=== PATIENT | female | born 1960 | race Caucasian/White ===

== ENCOUNTER 2016-10-27 12:22 | Emergency (ER) | payer BC ==
--- NOTE | 2016-10-27 13:18 | Emergency Department Record ---
History of Present Illness - General Chief Complaint: General Stated Complaint: UNEXPLAINED WEIGHT LOSS AND POPING IN BACK OF HEAD Time Seen by Provider: 10/27/16 13:06 Source: Patient, RN notes reviewed Mode of Arrival: Ambulatory - History of Present Illness Initial comments: headache 6 days ago and she felt something pop in the right posterior head. She went to [facility] and sent to the ED. Primary Dr. Ly in [place]. Weight loss of 20 pounds since april 2016. Occassional blue dot and vision off slightly. polyuria and polydipsia. Dry cough in the am. Patient stopped smoking in 1999. Onset/Timin -: Days(s) - Related Data Allergies Allergy/AdvReac Type Severity Reaction Status Date / Time codeine Allergy Severe VOMITING Unverified 07/28/15 10:34 orphenadrine citrate Allergy MUSCLE PAIN Verified 09/30/15 09:39 [From Norflex] opiates Allergy Severe HIVES Uncoded 07/28/15 10:34 Travel Screening - Travel/Exposure Within Last 30 Days Have you traveled within the last 30 days?: No - Travel/Exposure Within Last Year Have you traveled outside the [place] in the last year?: No - Additonal Travel Details Have you been exposed to anyone with a communicable illness?: No - Travel Symptoms Symptom Screening: None Review of Systems Reviewed: No additional complaints except as noted below Constitutional: Reports: As per HPI, Weight change. Denies: Chills, Fever, Malaise, Night sweats, Weakness Eyes: Reports: As per HPI. Denies: Eye discharge, Eye pain, Photophobia, Vision change ENT: Reports: As per HPI. Denies: Congestion, Dental pain, Ear pain, Epistaxis , Hearing loss, Throat pain Respiratory: Reports: As per HPI, Cough. Denies: Dyspnea, Hemoptysis, Stridor, Wheezes Cardiovascular: Reports: As per HPI. Denies: Arrhythmia, Chest pain, Dyspnea on exertion, Edema, Murmurs, Orthopnea, Palpitations, Paroxysmal nocturnal dyspnea, Rheumatic Fever, Syncope Endocrine: Reports: As per HPI. Denies: Fatigue, Heat or cold intolerance, Polydipsia, Polyuria Gastrointestinal: Reports: As per HPI. Denies: Abdominal pain, Constipation, Diarrhea, Hematemesis, Hematochezia, Melena, Nausea, Vomiting Genitourinary: Reports: As per HPI. Denies: Abnormal menses, Discharge, Dyspareunia, Dysuria, Frequency, Hematuria, Incontinence, Retention, Urgency Musculoskeletal: Reports: As per HPI. Denies: Arthralgia, Back pain, Gout, Joint swelling, Myalgia, Neck pain Skin: Reports: As per HPI. Denies: Bruising, Change in color, Change in hair/ nails, Lesions, Pruritus, Rash Neurological: Reports: As per HPI, Headache. Denies: Abnormal gait, Confusion, Numbness, Paresthesias, Seizure, Tingling, Tremors, Vertigo, Weakness Psychiatric: Reports: As per HPI. Denies: Anxiety, Auditory hallucinations, Depression, Homicidal thoughts, Suicidal thoughts, Visual hallucinations Hematological/Lymphatic: Reports: As per HPI. Denies: Anemia, Blood Clots, Easy bleeding, Easy bruising, Swollen glands Past Medical History - SOCIAL HISTORY Smoking Status: Former smoker Alcohol Use: None Drug Use: None - RESPIRATORY Hx Respiratory Disorders: No - CARDIOVASCULAR Hx Cardio Disorders: Yes Hx Hypertension: Yes - NEURO Hx Neuro Disorders: No Comment:: restless legs - GI Hx GI Disorders: No - Hx Genitourinary Disorders: No - ENDOCRINE Hx Endocrine Disorders: No Hx Diabetes: No - MUSCULOSKELETAL Hx Musculoskeletal Disorders: Yes Hx Arthritis: Yes - PSYCH Hx Psych Problems: No - HEMATOLOGY/ONCOLOGY Hx Hematology/Oncology Disorders: No Family Medical History Any Significant Family History?: Yes Hx Cancer: Father Hx Diabetes: Father Hx Stroke: Father Course Vital Signs 10/27/16 10/27/16 12:29 12:54 Temperature 98.1 F 98.1 F Respiratory 20 20 Rate Blood Pressure 128/99 [Left Arm] Pulse Ox 100 Medical Decision Making - Data Complexity MDM Data: Labs Ordered and/or Reviewed, X-Ray Ordered and/or Reviewed (CTof head negative and chest xray neg) - Lab Data Result diagrams: 10/27/16 13:32 10/27/16 13:32 Disposition Clinical Impression: Weight loss Headache, tension-type Qualifiers: Headache chronicity pattern: unspecified pattern Intractability: not intractable Qualified Code(s): G44.209 - Tension-type headache, unspecified, not intractable Disposition: Home, Self-Care Condition: (1) Good Instructions: Tension Headache (ED) Additional Instructions: acetaminophen or motrin for pain follow up with family DR in one week Forms: Patient Portal Access Time of Disposition: 14:59 Quality - Quality Measures Quality Measures: N/A - Blood Pressure Screening Does Patient Have Any of the Following: No Blood Pressure Classification: Hypertensive Reading Systolic Measurement: 128 Diastolic Measurement: 99 Screening for High Blood Pressure: < Pre-Hypertensive BP, F/U Documented > [ G8950] Pre-Hypertensive Follow-up Interventions: Referral to alternative/primary care provider.
[2016-10-27 13:48] LABS: BASO % 0.5 % (0-6); EOS % 2.2 % (0-6); GRAN % 45.6 % (47-80); HEMATOCRIT 40.3 % (35.0-47.0); HEMOGLOBIN 13.5 gm/dl (11.6-16.0); LYMPH % 43.5 % (16-45); MEAN CELL VOLUME 90.2 fl (81-97); MEAN CORPUSCULAR HEMOGLOBIN 30.2 pg (27-33); MEAN CORPUSCULAR HGB CONC 33.5 g/dl (32-36); MEAN PLATELET VOLUME 10.6 fl (7.4-10.4); MONO % 8.2 % (0-9); PLATELET COUNT 262 K/uL (130-400); RED BLOOD COUNT 4.47 M/uL (3.80-5.40); RED CELL DISTRIBUTION WIDTH 13.8 % (11.5-14.5); WHITE BLOOD COUNT W/O DIFF 7.7 K/uL (4.2-12.2)
[2016-10-27 13:58] LABS: INR 0.99; PROTHROMBIN TIME (PATIENT) 10.7 SECONDS (9.5-12.1)
[2016-10-27 14:17] LABS: ALBUMIN 4.8 g/dL (4.0-5.0); ALKALINE PHOSPHATASE 72 U/L (35-104); ALT/SGPT 23 U/L (<33); AST/SGOT 28 U/L (10.0-35.0); BLOOD UREA NITROGEN 27.3 mg/dL (12.6-42.6); CREATININE 0.6 mg/dL (0.5-0.9); EST GLOMERULAR FILTRATION RATE > 60 mL/min; GLUCOSE,RANDOM 98 mg/dL (74-109)
[2016-10-27 14:21] LABS: ACETAMINOPHEN < 5.0 ug/mL (10.0-30.0); BILIRUBIN,DIRECT < 0.2 mg/dL (0-0.3); SALICYLATE < 0.3 mg/dL (2.8-20)
[2016-10-27 14:29] LABS: URINE APPEARANCE CLEAR; URINE BILIRUBIN NEGATIVE (NEGATIVE); URINE BLOOD NEGATIVE (NEGATIVE); URINE COLOR YELLOW; URINE GLUCOSE (UA) NEGATIVE (NEGATIVE); URINE KETONE NEGATIVE (NEGATIVE); URINE LEUKOCYTE ESTERASE NEGATIVE (NEGATIVE); URINE NITRITE NEGATIVE (NEGATIVE); URINE PROTEIN NEGATIVE (NEGATIVE); URINE UROBILINOGEN 0.2 E.U./dL (0.20 - 1.00)
--- NOTE | 2016-10-28 07:58 | CT SCAN REPORT ---
EXAM: CT OF THE BRAIN WITHOUT CONTRAST HISTORY: POSSIBLE CEREBROVASCULAR ACCIDENT. TECHNIQUE: Sequential axial images were obtained from the foramen magnum to the vertex without contrast administration. FINDINGS: The brain volume is normal. No large territorial infarct, hemorrhage , mass effect, or midline shift. No extraaxial fluid collection. The orbits, paranasal sinuses, and mastoid air cells are normal. IMPRESSION: NO ACUTE INTRACRANIAL ABNORMALITY IS APPRECIATED. JOB NUMBER: [id number] MTDD
--- NOTE | 2016-10-28 08:00 | RADIOLOGY REPORT ---
EXAM: CHEST, TWO VIEWS HISTORY: DIFFICULTY IN BREATHING. TECHNIQUE: Frontal and lateral views of the chest were performed. FINDINGS: The heart size is normal. The lung mauro are clear. The osseous structures are normal. IMPRESSION: NEGATIVE CHEST EXAMINATION. JOB NUMBER: [id number] MTDD
== END 2016-10-27 15:13 | disposition home or self-care (01) ==
LOC: ER 12:22
DX: R63.4 Abnormal weight loss (principal); G44.209 Tension-type headache, unspecified, not intractable; R63.1 Polydipsia; R06.00 Dyspnea, unspecified; I10 Essential (primary) hypertension; Z87.891 Personal history of nicotine dependence; Z79.899 Other long term (current) drug therapy
CPT/HCPCS: 99283; 99284; 83735; 85025; 85610; 80076; 80048; 81003; 87880; 84443; 71020; 70450; G0480 ×2; 80329

== ENCOUNTER 2017-10-28 10:05 | Emergency (ER) | payer BC ==
[2017-10-28] MEDS ORDERED: ASPIRIN 81 MG CHEWABLE TABLET PO ONE (10:25)
[2017-10-28] MEDS ORDERED: ALBUTEROL SULFATE (0.083%) 2.5 MG/3 ML NEB INH ONE (10:28)
[2017-10-28 10:36] LABS: BASO % 0.6 % (0-6); EOS % 2.7 % (0-6); GRAN % 40.4 % (47-80); HEMATOCRIT 38.6 % (35.0-47.0); HEMOGLOBIN 12.8 gm/dl (11.6-16.0); LYMPH % 46.8 % (16-45); MEAN CELL VOLUME 89.1 fl (81-97); MEAN CORPUSCULAR HEMOGLOBIN 29.6 pg (27-33); MEAN CORPUSCULAR HGB CONC 33.2 g/dl (32-36); MEAN PLATELET VOLUME 10.6 fl (7.4-10.4); MONO % 9.5 % (0-9); PLATELET COUNT 260 K/uL (130-400); RED BLOOD COUNT 4.33 M/uL (3.80-5.40); RED CELL DISTRIBUTION WIDTH 13.4 % (11.5-14.5); WHITE BLOOD COUNT W/O DIFF 7.9 K/uL (4.2-12.2)
--- NOTE | 2017-10-28 10:43 | Emergency Department Record ---
History of Present Illness - General Chief Complaint: Chest Pain Stated Complaint: CP/SOB Time Seen by Provider: 10/28/17 10:25 Source: Patient Mode of Arrival: Wheelchair Limitations: No limitations - History of Present Illness Initial Comments: pt developed sob and coughing and chest tightness while working this am. pt had a similar episode a few weeks ago and was admitted to [facility]. she had a neg workup including a neg stress test and was seen by dr cam. Complaint: Chest pain Onset/Timin -: Minutes(s) Onset: During exertion Pain Location: Left chest Pain Radiation: LUE Severity: Moderate Quality: Aching, Heaviness Consistency: Now resolved Anginal Symptoms: Dyspnea Other Symptoms: Cough - Related Data Home Medications Medication Instructions Recorded Confirmed Last Taken Amoxicillin/Potassium Clav 1 each PO BID 10/28/17 10/28/17 10/28/17 [Augmentin 875Mg/125Mg] Cyanocobalamin (Vitamin B-12) 500 mcg PO DAILY 10/28/17 10/28/17 10/28/17 [Vitamin B-12] Previous Rx's Medication Instructions Recorded Albuterol Sulfate [Ventolin Hfa] 1 - 2 puff IH .EVERY 4-6 HOURS PRN 10/28/17 #1 inhaler Allergies Allergy/AdvReac Type Severity Reaction Status Date / Time codeine Allergy Severe VOMITING Verified 10/28/17 10:15 orphenadrine citrate Allergy MUSCLE PAIN Verified 10/28/17 10:15 [From Norflex] opiates Allergy Severe HIVES Uncoded 10/28/17 10:15 Travel Screening - Travel/Exposure Within Last 30 Days Have you traveled within the last 30 days?: No - Travel/Exposure Within Last Year Have you traveled outside the [place] in the last year?: No - Additonal Travel Details Have you been exposed to anyone with a communicable illness?: No - Travel Symptoms Symptom Screening: None Review of Systems Reviewed: No additional complaints except as noted below Constitutional: Reports: As per HPI. Denies: Chills, Fever, Malaise, Night sweats, Weakness, Weight change Eyes: Reports: As per HPI. Denies: Eye discharge, Eye pain, Photophobia, Vision change ENT: Reports: As per HPI. Denies: Congestion, Dental pain, Ear pain, Epistaxis , Hearing loss, Throat pain Respiratory: Reports: As per HPI, Cough, Dyspnea. Denies: Hemoptysis, Stridor, Wheezes Cardiovascular: Reports: As per HPI, Chest pain, Dyspnea on exertion. Denies: Arrhythmia, Edema, Murmurs, Orthopnea, Palpitations, Paroxysmal nocturnal dyspnea, Rheumatic Fever, Syncope Endocrine: Reports: As per HPI. Denies: Fatigue, Heat or cold intolerance, Polydipsia, Polyuria Gastrointestinal: Reports: As per HPI. Denies: Abdominal pain, Constipation, Diarrhea, Hematemesis, Hematochezia, Melena, Nausea, Vomiting Genitourinary: Reports: As per HPI. Denies: Abnormal menses, Discharge, Dyspareunia, Dysuria, Frequency, Hematuria, Incontinence, Retention, Urgency Musculoskeletal: Reports: As per HPI. Denies: Arthralgia, Back pain, Gout, Joint swelling, Myalgia, Neck pain Skin: Reports: As per HPI. Denies: Bruising, Change in color, Change in hair/ nails, Lesions, Pruritus, Rash Neurological: Reports: As per HPI. Denies: Abnormal gait, Confusion, Headache, Numbness, Paresthesias, Seizure, Tingling, Tremors, Vertigo, Weakness Psychiatric: Reports: As per HPI. Denies: Anxiety, Auditory hallucinations, Depression, Homicidal thoughts, Suicidal thoughts, Visual hallucinations Hematological/Lymphatic: Reports: As per HPI. Denies: Anemia, Blood Clots, Easy bleeding, Easy bruising, Swollen glands Past Medical History - SOCIAL HISTORY Smoking Status: Former smoker Alcohol Use: None Drug Use: None - RESPIRATORY Hx Respiratory Disorders: No - CARDIOVASCULAR Hx Cardio Disorders: Yes Hx Hypertension: Yes Comment:: angina - NEURO Hx Neuro Disorders: No Comment:: restless legs - GI Hx GI Disorders: No - Hx Genitourinary Disorders: No - ENDOCRINE Hx Endocrine Disorders: No Hx Diabetes: No - MUSCULOSKELETAL Hx Musculoskeletal Disorders: Yes Hx Arthritis: Yes - PSYCH Hx Psych Problems: No - HEMATOLOGY/ONCOLOGY Hx Hematology/Oncology Disorders: No Family Medical History Any Significant Family History?: No Hx Cancer: Father Hx Diabetes: Father Hx Stroke: Father Physical Exam - General General Appearance: Alert, Oriented x3, Cooperative, Mild distress - Head Head exam: Normal inspection - Eye Eye exam: Normal appearance, PERRL, EOMI Pupils: Normal accommodation - ENT ENT exam: Normal exam, Mucous membranes moist, Normal external ear exam, Normal orophraynx Ear exam: Normal external inspection. negative: External canal tenderness Nasal Exam: Normal inspection. negative: Discharge, Sinus tenderness Mouth exam: Normal external inspection, Tongue normal Teeth exam: Normal inspection. negative: Dental caries Throat exam: Normal inspection. negative: Tonsillar erythema, Tonsillar exudate - Neck Neck exam: Normal inspection, Full ROM. negative: Tenderness - Respiratory Respiratory exam: Normal lung sounds bilaterally, Other (tachypnea). negative: Respiratory distress - Cardiovascular Cardiovascular Exam: Regular rate, Normal rhythm, Normal heart sounds - GI/Abdominal GI/Abdominal exam: Soft, Normal bowel sounds. negative: Tenderness - Rectal Rectal exam: Deferred - exam: Deferred - Extremities Extremities exam: Normal inspection, Full ROM, Normal capillary refill. negative: Tenderness - Back Back exam: Reports: Normal inspection, Full ROM. Denies: Muscle spasm, Rash noted, Tenderness - Neurological Neurological exam: Alert, Normal gait, Oriented X3, Reflexes normal - Psychiatric Psychiatric exam: Normal affect, Normal mood - Skin Skin exam: Dry, Intact, Normal color, Warm Course Vital Signs 10/28/17 10/28/17 10:06 10:23 Temperature 98.1 F Pulse Rate 75 99 H Respiratory 22 22 Rate Blood Pressure 153/91 Pulse Ox 98 93 L - Reevaluation(s) Reevaluation #1: 10/28/17 14:40 pt feels better. coughing is better. d/w dr cam Medical Decision Making - Lab Data Result diagrams: 10/28/17 10:20 10/28/17 10:20 Lab Results 10/28/17 Range/Units 10:20 WBC 7.9 (4.2-12.2) K/uL RBC 4.33 (3.80-5.40) M/uL Hgb 12.8 (11.6-16.0) gm/dl Hct 38.6 (35.0-47.0) % MCV 89.1 (81-97) fl MCH 29.6 (27-33) pg MCHC 33.2 (32-36) g/dl RDW 13.4 (11.5-14.5) % Plt Count 260 (130-400) K/uL MPV 10.6 H (7.4-10.4) fl Gran % 40.4 L (47-80) % Lymphocytes % 46.8 H (16-45) % Monocytes % 9.5 H (0-9) % Eosinophils % 2.7 (0-6) % Basophils % 0.6 (0-6) % Disposition Disposition: Discharge Clinical Impression: Acute bronchospasm Chest pain Qualifiers: Chest pain type: unspecified Qualified Code(s): R07.9 - Chest pain, unspecified Disposition: Home, Self-Care Condition: (1) Good Instructions: Chest Pain (ED), Reactive Airways Disease (ED) Additional Instructions: follow up with family doctor. return sooner if worse follow up with dr cam Prescriptions: Albuterol Sulfate [Ventolin Hfa] 1 - 2 puff IH .EVERY 4-6 HOURS PRN #1 inhaler PRN Reason: Difficulty In Breathing Forms: Patient Portal Access Quality - Quality Measures Quality Measures: N/A - Blood Pressure Screening Does Patient Have Any of the Following: No Blood Pressure Classification: Hypertensive Reading Systolic Measurement: 153 Diastolic Measurement: 91 Screening for High Blood Pressure: < First Hypertensive BP, F/U Documented > [ G8950] First Hypertensive Follow-up Interventions: Follow-up with rescreen GT 1 day and LT 4 weeks.
[2017-10-28 10:45] LABS: BLOOD UREA NITROGEN 11 mg/dL (6-20); CREATININE 0.6 mg/dL (0.5-0.9); EST GLOMERULAR FILTRATION RATE > 60 mL/min
[2017-10-28 10:48] LABS: GLUCOSE,RANDOM 119 mg/dL (74-109)
[2017-10-28 10:51] LABS: CREATINE PHOSPHOKINASE 138 U/L (26-192)
[2017-10-28 10:53] LABS: CKMB 3.7 ng/mL (<3.77); NTpro B-NATRIURETIC PEPTIDE 74.89 pg/mL (<125)
[2017-10-28] MEDS ORDERED: METHYLPREDNISOLONE PF 125MG/VIAL IVP ONE (11:03)
[2017-10-28 14:24] LABS: CKMB 2.8 ng/mL (<3.77)
--- NOTE | 2017-10-30 20:59 | RADIOLOGY REPORT ---
EXAM: CHEST 2 VIEWS HISTORY: COUGH, SUDDEN DIFFICULTY IN BREATHING, CHEST PAIN TODAY. TECHNIQUE: PA and lateral views. COMPARISON: Two-view chest 10/24/17. Report of the prior study not as yet available within PACS. FINDINGS: Heart size within normal limits. Lungs again appears somewhat hyperinflated suggesting underlying COPD. No definite acute infiltrate seen. No pleural effusion or pneumothorax evident. Mild spurring in the spine. There again appear to be bilateral breast implants with some calcification in the capsules. Faint numbers are seen overlying the chest on the frontal view bilaterally, presumably related to implant identification. IMPRESSION: 1. HYPERINFLATION SUGGESTING COPD. 2. NO ACUTE INFILTRATE EVIDENT. 3. BILATERAL BREAST IMPLANTS WITH SOME CALCIFICATION IN THE CAPSULES SIMILAR TO BEFORE. JOB NUMBER: [id number] MTDD
== END 2017-10-28 15:09 | disposition home or self-care (01) ==
LOC: ER 10:05
DX: J98.01 Acute bronchospasm (principal); R07.89 Other chest pain; R06.02 Shortness of breath; I10 Essential (primary) hypertension; Z87.891 Personal history of nicotine dependence
CPT/HCPCS: 71046; 80048; 82550; 82553; 83880; 84484; 85025; 85379; 93005; 93010; 94640; 96374; 99284; J2930; J7613

== ENCOUNTER 2018-05-04 13:22 | Emergency (ER) | payer BC ==
[2018-05-04] MEDS ORDERED: KETOROLAC 30 MG/ML VIAL IVP ONE (13:51)
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
[2018-05-04 14:01] LABS: BASO % 0.3 % (0-6); EOS % 1.4 % (0-6); HEMATOCRIT 36.4 % (35.0-47.0); HEMOGLOBIN 11.7 gm/dl (11.6-16.0); LYMPH % 33.2 % (16-45); MEAN CELL VOLUME 90.5 fl (81-97); MEAN CORPUSCULAR HEMOGLOBIN 29.1 pg (27-33); MEAN CORPUSCULAR HGB CONC 32.1 g/dl (32-36); MEAN PLATELET VOLUME 10.6 fl (7.4-10.4); MONO % 9.1 % (0-9); PLATELET COUNT 258 K/uL (130-400); RED BLOOD COUNT 4.02 M/uL (3.80-5.40); RED CELL DISTRIBUTION WIDTH 13.5 % (11.5-14.5); WHITE BLOOD COUNT W/O DIFF 8.7 K/uL (4.2-12.2)
[2018-05-04 14:14] LABS: BLOOD UREA NITROGEN 10 mg/dL (6-20); CREATININE 0.6 mg/dL (0.5-0.9); EST GLOMERULAR FILTRATION RATE > 60 mL/min
[2018-05-04 14:15] LABS: TOTAL PROTEIN 7.1 g/dL (6.6-8.7)
[2018-05-04 14:17] LABS: GLUCOSE,RANDOM 119 mg/dL (74-109)
[2018-05-04 14:20] LABS: ALB/GLOB RATIO 1.5 (1.1-1.8); ALBUMIN 4.3 g/dL (4.0-5.0); ALKALINE PHOSPHATASE 78 U/L (35-104); ALT/SGPT 17 U/L (<33); AST/SGOT 19 U/L (10.0-35.0)
[2018-05-04] MEDS ORDERED: ACETAMINOPHEN 325 MG TAB PO ONE (14:43)
--- NOTE | 2018-05-08 07:47 | RADIOLOGY REPORT ---
EXAM: CHEST, TWO VIEWS HISTORY: CHEST PAIN FOR TWO DAYS. PAINFUL INSPIRATION. TECHNIQUE: Two views of the chest were obtained. Comparison: Chest radiograph 10/28/17. FINDINGS: The cardiac silhouette is within normal size limits. Bilateral breast implant capsular calcifications. Numerical artifacts within the breast regions bilaterally, similar from prior. No focal pulmonary consolidation. No pleural effusion nor pneumothorax. The lungs appear hyperinflated. IMPRESSION: 1. NO ACUTE LUNG FINDINGS. 2. PULMONARY HYPERINFLATION, MAY BE SEEN WITH COPD. J[facility]BER: [id number] [facility]
== END 2018-05-04 15:33 | disposition home or self-care (01) ==
LOC: ER 13:22
DX: R07.89 Other chest pain (principal); M54.6 Pain in thoracic spine; I10 Essential (primary) hypertension
CPT/HCPCS: 71046; 80053; 84484; 85025; 85379; 93005; 93010; 96374; 99284; J1885